=== PATIENT | female | born 1940 | race Caucasian/White ===

== ENCOUNTER → 2017-10-08 | Outpatient (CLI) | payer MEDICARE | END | disposition home or self-care (01) | LOC: SURG 10:05 | PROVIDERS: ATTEND Anesthesiology Pain Medicine | DX: M47.816 Spondylosis without myelopathy or radiculopathy, lumbar region (principal); M54.16 Radiculopathy, lumbar region; F41.9 Anxiety disorder, unspecified; E11.9 Type 2 diabetes mellitus without complications; G89.4 Chronic pain syndrome | CPT/HCPCS: 99214 ==

== ENCOUNTER → 2017-11-04 | Outpatient (CLI) | payer MEDICARE | END | disposition home or self-care (01) | LOC: SURG 09:35 | PROVIDERS: ATTEND Anesthesiology Pain Medicine | DX: M47.816 Spondylosis without myelopathy or radiculopathy, lumbar region (principal); M54.16 Radiculopathy, lumbar region; I10 Essential (primary) hypertension; E11.9 Type 2 diabetes mellitus without complications | CPT/HCPCS: 99214 ==

== ENCOUNTER → 2018-01-14 | Outpatient (CLI) | payer MEDICARE ==
[~2018-01-14] MED LIST: BUPIVACAINE MPF 0.25% 10 ML VIAL. ONE; DEXAMETHASONE SOD PHOS 4 MG/ML VIAL ONE; IOHEXOL 300 MG/ML 50 ML VIAL. ONE; LIDOCAINE 1% PF 30 ML VIAL. ONE
== END ==
LOC: SURG 12:58
PROVIDERS: ATTEND Anesthesiology Pain Medicine
DX: M54.16 Radiculopathy, lumbar region (principal); I10 Essential (primary) hypertension; K21.9 Gastro-esophageal reflux disease without esophagitis; E11.9 Type 2 diabetes mellitus without complications; E03.9 Hypothyroidism, unspecified; Z98.890 Other specified postprocedural states; Z87.39 Personal history of other diseases of the musculoskeletal system and connective tissue
CPT/HCPCS: 64483; 64484; J1100; J2001; J3490; Q9967

== ENCOUNTER → 2018-02-04 | Outpatient (CLI) | payer MEDICARE | END | disposition home or self-care (01) | LOC: SURG 10:46 | PROVIDERS: ATTEND Anesthesiology Pain Medicine | DX: M54.5 Low back pain (principal); M79.604 Pain in right leg; M79.672 Pain in left foot; M79.671 Pain in right foot; I10 Essential (primary) hypertension; E11.9 Type 2 diabetes mellitus without complications; E03.9 Hypothyroidism, unspecified; K21.9 Gastro-esophageal reflux disease without esophagitis; Z87.39 Personal history of other diseases of the musculoskeletal system and connective tissue | CPT/HCPCS: 82947; 99214 ==

== ENCOUNTER → 2018-06-30 | Outpatient (CLI) | payer MEDICARE ==
[~2018-06-30] MED LIST changes: +0.9 % SODIUM CHLORIDE 10 ML VIAL ONE; -BUPIVACAINE MPF 0.25% 10 ML VIAL. ONE; +BUPIVACAINE MPF 0.25% 30 ML VIAL. ONE; -DEXAMETHASONE SOD PHOS 4 MG/ML VIAL ONE; +methylPREDNISolone ACETATE 80 MG/ML VIAL. ONE
== END | disposition home or self-care (01) ==
LOC: SURG 08:23
PROVIDERS: ATTEND Anesthesiology Pain Medicine
DX: M47.26 Other spondylosis with radiculopathy, lumbar region (principal); M79.18 Myalgia, other site; I10 Essential (primary) hypertension; E11.9 Type 2 diabetes mellitus without complications; F41.9 Anxiety disorder, unspecified; K21.9 Gastro-esophageal reflux disease without esophagitis; F32.9 Major depressive disorder, single episode, unspecified; G47.30 Sleep apnea, unspecified; I47.1 Supraventricular tachycardia; Z88.2 Allergy status to sulfonamides; Z88.8 Allergy status to other drugs, medicaments and biological substances; Z91.040 Latex allergy status; J06.9 Acute upper respiratory infection, unspecified; M19.90 Unspecified osteoarthritis, unspecified site; Z98.890 Other specified postprocedural states; Z79.82 Long term (current) use of aspirin; Z79.899 Other long term (current) drug therapy; Z79.2 Long term (current) use of antibiotics; Z79.84 Long term (current) use of oral hypoglycemic drugs
CPT/HCPCS: 20552; 62323; J1040; J2001; J3490; Q9967